=== PATIENT | male | born 1950 | race Caucasian/White ===

== ENCOUNTER 2018-03-03 15:57 | Inpatient (IN) | payer MEDICARE, MEDICAID ==
[2018-03-03 16:44] LABS: % BASOPHILS 0.6 % (0.0-2.0); % EOSINOPHILS 3.2 % (0.0-5.0); % LYMPHOCYTES 32.6 % (20.0-50.0); % MONOCYTES 8.1 % (2.0-10.0); % NEUTROPHILS 55.5 % (40.0-80.0); EOSINOPHILE ABSOLUTE 0.2 Th/cmm (0.1-0.4); HEMATOCRIT 43.8 % (41.0-60); HEMOGLOBIN 14.2 gm/dL (12-16); LYMPHOCYTE ABSOLUTE 2.1 Th/cmm (1.5-3.0); MEAN CELL VOLUME 97.6 fl (80-99); MEAN CORPUSCULAR HEMOGLOBIN 31.7 pg (27.0-31.0); MEAN CORPUSCULAR HGB CONC 32.4 pg (28.0-36.0); MEAN PLATELET VOLUME 8.6 fl; MONOCYTE ABSOLUTE 0.5 Th/cmm (0.3-1.0); NEUTROPHILE ABSOLUTE 3.5 Th/cmm (1.8-8.0); PLATELET COUNT 117 Th/cmm (150-400); RED BLOOD COUNT 4.48 Mil/cmm (3.80-5.80); RED CELL DISTRIBUTION WIDTH 13.2 % (11.5-20.0); WHITE BLOOD COUNT 6.3 Th/cmm (4.8-10.8)
[2018-03-03 17:13] LABS: ALBUMIN 3.2 gm/dL (4.2-5.5); ALKALINE PHOSPHATASE 99 U/L (34-104); ANION GAP 18.3 (7.0-16.0); BILIRUBIN,TOTAL 0.9 mg/dL (0.3-1.0); BUN - UREA NITROGEN 25 mg/dL (7-25); CALCIUM SERUM 8.5 mg/dL (8.6-10.3); CHLORIDE 110 mEq/L (98-107); CREATININE - SERUM 0.7 mg/dL (0.7-1.3); GFR AFRICAN-AMERICAN > 60.0 ml/min (>90); GFR NON AFRICAN-AMERICAN > 60.0 ml/min; GLUCOSE 102 mg/dL (70-105); POTASSIUM SERUM 4.5 mEq/L (3.5-5.1); SGOT 16 U/L (13-39); SGPT/ALT 14 U/L (7-52); SODIUM SERUM 140 mEq/L (136-145)
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
[2018-03-03 17:28] LABS: CARBON DIOXIDE 16.2 mEq/L (21.0-31.0)
[2018-03-03 17:35] LABS: URINE MICROSCOPIC INDICATED? YES; URINE SOURCE RANDOM
[2018-03-03 17:38] LABS: URINE BILIRUBIN NEGATIVE (NEGATIVE); URINE BLOOD MODERATE (NEGATIVE); URINE GLUCOSE (UA) NEGATIVE (NEGATIVE); URINE KETONE NEGATIVE (NEGATIVE); URINE LEUKOCYTE ESTERASE LARGE (NEGATIVE); URINE NITRATE POSITIVE (NEGATIVE); URINE PH 6.5 (4.6 - 8.0); URINE PROTEIN 100 mg/dL (NEGATIVE); URINE UROBILINOGEN 0.2 E.U./dL (0.2 - 1.0)
[2018-03-03 17:45] LABS: URINE CLARITY CLOUDY (CLEAR); URINE COLOR YELLOW
[2018-03-03 17:47] LABS: URINE WBC >100 /hpf (0-5)
[2018-03-03 17:48] LABS: URINE BACTERIA MANY /hpf (NONE SEEN); URINE EPITHELIAL CELLS RARE /lpf (FEW); URINE RBC 25-50 /hpf (0-5)
[2018-03-03] MEDS ORDERED: Sulfamethoxazole/TMP 800/160mg Tab PO ONE (17:53)
[2018-03-03] MEDS ORDERED: Sulfamethoxazole/TMP 800/160mg Tab ONE (17:57)
[2018-03-03 18:43] VITALS: BP 117/47
[2018-03-03] MEDS: Multivitamin w/ Minerals Tab PO SCH (21:00)
[2018-03-04] MEDS: Levothyroxine 0.075 Mg Tab PO SCH (06:39)
--- NOTE | 2018-03-04 09:57 | Diagnostic Imaging Report ---
Portable chest x-ray Time: 1700 hours History: Aortic calcification Allowing for portable technique the heart size is normal. No focal pulmonary parenchymal processes. No hilar or mediastinal abnormalities. Aortic arch calcified. Mild pleural thickening left base appreciated Impression: No acute abnormalities. Left base pleural thickening. Atherosclerotic calcification of aortic arch
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
[2018-03-04] MEDS: Multivitamin w/ Minerals Tab PO SCH (20:48)
--- NOTE | 2018-03-04 23:08 | History & Physical ---
ADMIT DATE: 03/04/2018 REASON FOR ADMISSION: Psychiatric disorder. HISTORY OF PRESENT ILLNESS: A 67-year-old male with underlying history of hypertension, hyperlipidemia, Alzheimer dementia, seizure disorder, hypothyroidism, who was admitted to [facility] for underlying psychiatric illness by Dr. Aviles. Dr. Aviles requested medical H and P on this patient. The patient said he is doing fine. Denies any chest pain, shortness of breath, dizziness, palpitations or other complaints. PAST MEDICAL HISTORY: As per HPI. PAST SURGICAL HISTORY: The patient denies. FAMILY HISTORY: Noncontributory. SOCIAL HISTORY: No reported alcohol, tobacco or street drug use. CURRENT MEDICATIONS: On Vimpat, Keppra, Synthroid, Ativan, Lopressor, Risperdal, Zocor, Ambien, ciprofloxacin, amlodipine, amantadine. REVIEW OF SYSTEMS: No reported fever, no chills, no nausea, no vomiting, no abdominal pain, no headache, no trouble vision, no trouble speech, no diarrhea, no vomiting or other complaints. PHYSICAL EXAMINATION: VITAL SIGNS: Temperature 98.7, pulse 68, respirations 18, blood pressure 126/80 97% on room air. HEART: S1, S2 normal. LUNGS: Clear to auscultation bilaterally. ABDOMEN: Soft, nontender. EXTREMITIES: No edema. AVAILABLE LABORATORY DATA: Has been reviewed. ASSESSMENT: 1. UTI. 2. Hypertension. 3. Seizure disorder. 4. Hyperlipidemia. 5. Metabolic acidosis. 6. Mental disorder. PLAN: The patient admitted [facility]. Psych management per psychiatrist. The patient was started on ciprofloxacin. Follow urine cultures. Continue the patient's seizure medication. Monitor blood pressure and other vitals. Continue with current psychotropic medications per Psychiatrist. Plan of care discussed with the nursing staff. JOB# [id number] DIANA
[2018-03-05] MEDS: Levothyroxine 0.075 Mg Tab PO SCH (06:33)
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
[2018-03-05] MEDS: Multivitamin w/ Minerals Tab PO SCH (20:42)
[2018-03-06] MEDS: Levothyroxine 0.075 Mg Tab PO SCH (06:36)
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
== END 2018-03-06 19:15 | DRG 885 ==
LOC: ER 15:57 → GERO 18:03
PROVIDERS: ADMIT Psychiatry & Neurology Psychiatry; ATTEND Psychiatry & Neurology Psychiatry
DX: F29 Unspecified psychosis not due to a substance or known physiological condition (principal); F02.81 Dementia in other diseases classified elsewhere, unspecified severity, with behavioral disturbance; Z93.0 Tracheostomy status; N39.0 Urinary tract infection, site not specified; E87.2 Acidosis; E78.5 Hyperlipidemia, unspecified; F17.210 Nicotine dependence, cigarettes, uncomplicated; G30.9 Alzheimer's disease, unspecified; E03.9 Hypothyroidism, unspecified; I10 Essential (primary) hypertension; G40.909 Epilepsy, unspecified, not intractable, without status epilepticus; Q54.9 Hypospadias, unspecified; Z90.49 Acquired absence of other specified parts of digestive tract
CPT/HCPCS: 36415-UA; 71045-TC; 80053-TC; 81001-TC; 85025-TC; 87086-90; Z7610

== ENCOUNTER 2018-03-06 19:16 | Inpatient (IN) | payer MEDICARE, MEDICAID ==
[2018-03-06 21:40] VITALS: BP 124/67
[2018-03-06 22:08] LABS: % BASOPHILS 0.3 % (0.0-2.0); % EOSINOPHILS 3.1 % (0.0-5.0); % LYMPHOCYTES 27.8 % (20.0-50.0); % NEUTROPHILS 60.8 % (40.0-80.0); EOSINOPHILE ABSOLUTE 0.2 Th/cmm (0.1-0.4); HEMATOCRIT 40.3 % (41.0-60); HEMOGLOBIN 13.3 gm/dL (12-16); LYMPHOCYTE ABSOLUTE 1.8 Th/cmm (1.5-3.0); MEAN CELL VOLUME 98.5 fl (80-99); MEAN CORPUSCULAR HEMOGLOBIN 32.5 pg (27.0-31.0); MEAN CORPUSCULAR HGB CONC 32.9 pg (28.0-36.0); MEAN PLATELET VOLUME 8.3 fl; MONOCYTE ABSOLUTE 0.5 Th/cmm (0.3-1.0); PLATELET COUNT 185 Th/cmm (150-400); RED BLOOD COUNT 4.09 Mil/cmm (3.80-5.80); RED CELL DISTRIBUTION WIDTH 13.2 % (11.5-20.0); WHITE BLOOD COUNT 6.5 Th/cmm (4.8-10.8)
[2018-03-06 22:25] LABS: ALB/GLOB RATIO 1.1 (1.0-1.8); ALKALINE PHOSPHATASE 119 U/L (34-104); BILIRUBIN,TOTAL 0.7 mg/dL (0.3-1.0); BUN - UREA NITROGEN 23 mg/dL (7-25); CALCIUM SERUM 9.4 mg/dL (8.6-10.3); CARBON DIOXIDE 29.3 mEq/L (21.0-31.0); CHLORIDE 101 mEq/L (98-107); CREATININE - SERUM 0.8 mg/dL (0.7-1.3); GFR AFRICAN-AMERICAN > 60.0 ml/min (>90); GFR NON AFRICAN-AMERICAN > 60.0 ml/min; GLUCOSE 125 mg/dL (70-105); POTASSIUM SERUM 4.3 mEq/L (3.5-5.1); SGOT 14 U/L (13-39); SGPT/ALT 19 U/L (7-52); SODIUM SERUM 136 mEq/L (136-145); TOTAL PROTEIN,SERUM 7.6 gm/dL (6.0-8.3)
[2018-03-07] MEDS: Meropenem 500 MG in Sodium Chloride 0.9% 100 ML IV SCH ×2 (02:00→09:45)
[2018-03-07] MEDS: Levothyroxine 0.075 Mg Tab PO SCH (06:39)
[2018-03-07 10:57] LABS: URINE MICROSCOPIC INDICATED? YES; URINE SOURCE CLEAN C
[2018-03-07 11:02] LABS: URINE BILIRUBIN NEGATIVE (NEGATIVE); URINE BLOOD TRACE (NEGATIVE); URINE CLARITY CLEAR (CLEAR); URINE COLOR YELLOW; URINE GLUCOSE (UA) NEGATIVE (NEGATIVE); URINE KETONE NEGATIVE (NEGATIVE); URINE LEUKOCYTE ESTERASE MODERATE (NEGATIVE); URINE NITRATE NEGATIVE (NEGATIVE); URINE PROTEIN NEGATIVE (NEGATIVE); URINE UROBILINOGEN 0.2 E.U./dL (0.2 - 1.0)
[2018-03-07 11:05] LABS: URINE BACTERIA OCCASIONAL /hpf (NONE SEEN); URINE EPITHELIAL CELLS FEW /lpf (FEW)
--- NOTE | 2018-03-07 11:38 | Consultation ---
Consult Note - Consult Note Service Date: 03/07/18 Referring Physician: Zen Fox Consult Note: PHYSICIAN Consultation Note: Date of Admission: 03/06/18 Purpose of Consultation: Chief Complaint: Patient ELFEGO MONTENEGRO was admitted to location Medical/Surgical Unit I with UTI. History of Present Illness: Patient is a 67 year male with a past medical history of hypertension, hyperlipidemia, dementia, seizure disorder, hypothyroidism admitted to geropsychiatric unit for psych issues. However, urinalysis showed pyuria and bacteriuria. Urine culture grew Proteus mirabilis. Initially, Levaquin was started. As Proteus mirabilis was resistant to any oral antibiotic. He required IV antibiotics patient was transferred to acute care unit. ID consult was called for an department management. The patient was started on Zosyn. Past Medical History: hypertension, hyperlipidemia, dementia, seizure disorder, hypothyroidism Allergies Allergy/AdvReac Type Severity Reaction Status Date / Time No Known Allergies Allergy Verified 03/03/18 16:18 Vital Signs Temp 98.3 F 03/07/18 11:32 Pulse 62 03/07/18 11:32 Resp 18 03/07/18 11:32 BP 109/53 03/07/18 11:32 Pulse Ox 94 03/07/18 11:32 Intake & Output 03/06/18 03/07/18 03/07/18 18:59 06:59 18:59 Intake Total 440 Output Total 0 Balance 440 Weight (lbs) 85.457 kg Intake: Intake, IV Amount 100 Meropenem 500 mg In 100 Sodium Chloride 0.9% 100 ml @ 100 mls/hr IV Q8H [facility] Rx#:[id number] Oral 300 Other 40 Output: Stool 0 Other: # Voids 3 # Bowel Movements 0 Weight Source [facility] Laboratory Results - last 24 hr 03/06/18 03/06/18 03/07/18 22:00 22:00 10:00 WBC 6.5 RBC 4.09 Hgb 13.3 Hct 40.3 L MCV 98.5 MCH 32.5 H MCHC Differential 32.9 RDW 13.2 Plt Count 185 MPV 8.3 Neutrophils % 60.8 Lymphocytes % 27.8 Monocytes % 8.0 Eosinophils % 3.1 Basophils % 0.3 Sodium 136 Potassium 4.3 Chloride 101 Carbon Dioxide 29.3 Anion Gap 10.0 BUN 23 Creatinine 0.8 Est GFR ( Amer) > 60.0 Est GFR (Non-Af Amer) > 60.0 BUN/Creatinine Ratio 28.8 Glucose 125 H Calcium 9.4 Total Bilirubin 0.7 AST 14 ALT 19 Alkaline Phosphatase 119 H Total Protein 7.6 Albumin 4.0 L Globulin 3.6 Albumin/Globulin Ratio 1.1 Urine Source CLEAN C Urine Color YELLOW Urine Clarity CLEAR Urine pH 6.0 Ur Specific [place] 1.015 Urine Protein NEGATIVE Urine Glucose (UA) NEGATIVE Urine Ketones NEGATIVE Urine Blood TRACE Urine Nitrate NEGATIVE Urine Bilirubin NEGATIVE Urine Urobilinogen 0.2 Ur Leukocyte Esterase MODERATE H Urine RBC 2-5 H Urine WBC 6-10 Ur Epithelial Cells FEW Urine Bacteria OCCASIONAL Home Medication Medication Instructions Recorded Type Amantadine [Symmetrel] 100 mg PO DAILY sgl 03/06/18 Rx Benazepril [Lotensin] 20 mg PO DAILY tab 03/06/18 Rx Ciprofloxacin [Cipro] 500 mg PO BID tab 03/06/18 Rx Docusate Sodium [Colace] 100 mg PO DAILY cap 03/06/18 Rx Donepezil Hcl [Aricept] 10 mg PO DAILY tab 03/06/18 Rx Doxazosin [Cardura*] 4 mg PO DAILY tab 03/06/18 Rx Folic Acid [Folate*] 1 mg PO HS tab 03/06/18 Rx Lacosamide [Vimpat] 200 mg PO HS tab 03/06/18 Rx Levetiracetam [Keppra] 1,500 mg PO Q12HR tab 03/06/18 Rx Levothyroxine [Synthroid] 0.075 mg PO QDAC tab 03/06/18 Rx Lorazepam [Ativan] 0.5 mg PO Q6HR PRN tab 03/06/18 Rx Metoprolol Tartrate [Lopressor] 12.5 mg PO HS tab 03/06/18 Rx Multivitamin w/ Minerals 1 tab PO HS tab 03/06/18 Rx [Theragran M] Simvastatin [Zocor] 10 mg PO HS tab 03/06/18 Rx Zolpidem Tartrate [Ambien] 5 mg PO HS PRN tab 03/06/18 Rx amLODIPine Besylate [Norvasc*] 10 mg PO DAILY tab 03/06/18 Rx risperiDONE [RisperDAL] 0.25 mg PO BID tab 03/06/18 Rx Current Medications Generic Name Dose Route Start Last Admin Trade Name Freq PRN Reason Stop Dose Admin Amlodipine Besylate 10 mg 03/07/18 09:00 03/07/18 09:43 Norvasc PO 05/06/18 08:59 10 mg DAILY DUNCAN Administration Benazepril HCl 20 mg 03/07/18 09:00 03/07/18 09:44 Lotensin PO 05/06/18 08:59 20 mg DAILY DUNCAN Administration Donepezil HCl 10 mg 03/07/18 09:00 03/07/18 09:44 Aricept PO 05/06/18 08:59 10 mg DAILY DUNCAN Administration Meropenem 500 mg/ Sodium 100 mls @ 100 mls/hr 03/07/18 01:00 03/07/18 09:45 Chloride IV 05/06/18 00:59 100 mls/hr Q8H DUNCAN Administration Levetiracetam 1,500 mg 03/07/18 00:30 03/07/18 09:44 Keppra PO 05/06/18 00:29 1,500 mg Q12HR DUNCAN Administration Levothyroxine Sodium 0.075 mg 03/07/18 07:30 03/07/18 06:39 Synthroid PO 05/06/18 07:29 0.075 mg QDAC DUNCAN Administration Lorazepam 0.5 mg 03/07/18 00:24 Ativan PO 05/06/18 00:23 Q6HR PRN Agitation Protocol Metoprolol Tartrate 12.5 mg 03/07/18 00:45 03/07/18 09:44 Lopressor PO 05/06/18 00:44 12.5 mg BID DUNCAN Administration Risperidone 0.25 mg 03/07/18 00:45 Risperdal PO 05/06/18 00:44 BID DUNCAN Protocol Zolpidem Tartrate 5 mg 03/07/18 00:35 Ambien PO 05/06/18 00:34 HS PRN Insomnia Review of Systems: A 12 point ROS was reviewed with the pertinent positive and negatives noted in the HPI. Social History Smoking Status Current some day smoker Drug Use Yes: HEROIN MARIJUANA Family Medical History Family Medical History Start: 03/06/18 19: 47 Freq: ONCE Status: Active Document 03/06/18 22:04 KARRIE (Rec: 03/06/18 22:05 KARRIE THOMAS-MS4) Family Medical History Mother History Unknown Yes Physical Exam: General: Comfortable not in acute distress. HEENT: At: Normocytic, atraumatic. Oral cavity: Moist, pink tongue. Eyes: Pallor is present icterus. Neck: Supple, no Unique, no use of X his neck muscles. Cardio: S1 and S2 within normal limits regular rhythm. Respiratory: Vesicular breath sound. No crackles no wheezing Abdominal: Soft, nontender, nondistended bowel sounds present. Genital/Urinary: Deferred. Extremities: No cyanosis, no clubbing, no edema. Neurological: Alert, awake, oriented 3. Assessment: 1. UTI. 2. Psychosis. 3. Hypertension. 4. Hyperlipidemia. 5. Seizure disorder. Plan: Will change meropenem to Zosyn. We will give antibiotic to 5-7 days. Thank you, Dr. Fox for involving me in taking care of this patient Signed, Sagar Enciso M.D. [id number]
[2018-03-07] MEDS ORDERED: Probiotic Screen MC PRN (15:40)
--- NOTE | 2018-03-07 19:10 | History & Physical ---
ADMIT DATE: 03/06/2018 REASON FOR ADMISSION: UTI. HISTORY OF PRESENT ILLNESS: This is a 67-year-old male who was initially in the Geropsych Unit, was on oral antibiotic for UTI. Urine cultures came back which was sensitive to only IV antibiotics. So, the patient was transferred to Med/Surg unit for UTI treatment. The patient denies any fever, no chills, no nausea, no vomiting, no abdominal pain, other complaints. PAST MEDICAL HISTORY: Hypertension, seizure disorder, hypothyroidism and mental disorders. ALLERGIES: No drug allergies. SOCIAL HISTORY: Lives at home. No reported alcohol, tobacco or street drug use. CURRENT MEDICATIONS: Amlodipine, Lotensin, Aricept, Keppra, Synthroid, Ativan, Lopressor, Zosyn, probiotic, Ambien, and Risperdal. REVIEW OF SYSTEMS: As per HPI, 12-point system review is negative. PHYSICAL EXAMINATION: VITAL SIGNS: Temperature 98.3, pulse 62, respirations 18, blood pressure 109/53. Pain 0/10. GENERAL APPEARANCE: The patient was lying comfortably in the bed, no apparent distress. HEART: S1, S2 normal. LUNGS: Clear to auscultation. ABDOMEN: Soft, nontender. NEUROLOGIC: The patient is awake, but confused. Moves all extremities. Grossly nonfocal. EXTREMITIES: No edema. LABORATORY DATA: Available WBC 6.5, hemoglobin 13.3, hematocrit 40.3. Sodium 130, potassium 4.3, BUN 20, creatinine 0.8, AST , ALT 19. Urine leukocyte esterase moderate, WBCs 2-5, urine bacteria occasional. ASSESSMENT: 1. Urinary tract infection. 2. Hypertension. 3. Hypothyroidism. 4. Seizure disorder. 5. Mental disorder. PLAN: The patient will be continued on IV Zosyn. ID is on board. Continue current blood pressure medication, monitor blood pressures. Psych also consult, psychotropic drug management per psychiatrist. JOB# [id number]
[2018-03-08] MEDS: Levothyroxine 0.075 Mg Tab PO SCH (06:49)
[2018-03-08] MEDS: Lactobacillus Rhamnosus GG 15 Billion CFU CAP.SPRINK PO SCH (08:56)
--- NOTE | 2018-03-08 13:29 | Consultation ---
DATE OF CONSULTATION: 03/08/2018 PSYCHIATRIC CONSULT AGE: 67-year-old. SEX: Male. PHYSICIAN: Dr. Fox. REASON FOR THE CONSULT: Heavy drinking and depression. HISTORY OF PRESENT ILLNESS: The patient is a 67-year-old male [facility] The patient was admitted because of seizure disorder as well as urinary tract infection. The patient also has been depressed. Chart reviewed and tried to interview the patient, but the patient currently is sedated and he was not able to answer any of my questions coherently. The patient has been taking Risperdal and he also has been taking Ativan with no issues or side effects. PAST PSYCHIATRIC HISTORY: The patient has history of heavy drinking as well as history of what seems to be depression versus bipolar disorder. SOCIAL HISTORY: The patient drinks alcohol, but no known other drug use. MEDICAL ISSUES: The patient has seizure disorder. MENTAL STATUS EXAM: The patient appears slightly older than stated age. The patient is currently sedated and he was not able to answer any of my questions. ASSESSMENT: PRIMARY DIAGNOSIS: Depressive disorder, not otherwise specified. Rule out bipolar disorder. SECONDARY DIAGNOSIS: Alcohol use disorder. TREATMENT PLAN: Continue current medications, which is Risperdal and Ativan. We will reevaluate. Thanks to Dr. Fox and we will follow with you. [facility]# [id number]
--- NOTE | 2018-03-08 15:30 | General Progress Note ---
Subjective - Review of Systems Service Date: 03/08/18 Subjective: Patient seen and examined doing fine denied any complaints Objective - Results Result Diagrams: 03/06/18 22:00 03/06/18 22:00 Recent Labs: Laboratory Last Values WBC 6.5 Th/cmm (4.8-10.8) 03/06/18 22:00 RBC 4.09 Mil/cmm (3.80-5.80) 03/06/18 22:00 Hgb 13.3 gm/dL (12-16) 03/06/18 22:00 Hct 40.3 % (41.0-60) L 03/06/18 22:00 MCV 98.5 fl (80-99) 03/06/18 22:00 MCH 32.5 pg (27.0-31.0) H 03/06/18 22:00 MCHC Differential 32.9 pg (28.0-36.0) 03/06/18 22:00 RDW 13.2 % (11.5-20.0) 03/06/18 22:00 Plt Count 185 Th/cmm (150-400) 03/06/18 22:00 MPV 8.3 fl 03/06/18 22:00 Neutrophils % 60.8 % (40.0-80.0) 03/06/18 22:00 Lymphocytes % 27.8 % (20.0-50.0) 03/06/18 22:00 Monocytes % 8.0 % (2.0-10.0) 03/06/18 22:00 Eosinophils % 3.1 % (0.0-5.0) 03/06/18 22:00 Basophils % 0.3 % (0.0-2.0) 03/06/18 22:00 Sodium 136 mEq/L (136-145) 03/06/18 22:00 Potassium 4.3 mEq/L (3.5-5.1) 03/06/18 22:00 Chloride 101 mEq/L (98-107) 03/06/18 22:00 Carbon Dioxide 29.3 mEq/L (21.0-31.0) 03/06/18 22:00 Anion Gap 10.0 (7.0-16.0) 03/06/18 22:00 BUN 23 mg/dL (7-25) 03/06/18 22:00 Creatinine 0.8 mg/dL (0.7-1.3) 03/06/18 22:00 Est GFR ( Amer) > 60.0 ml/min (>90) 03/06/18 22:00 Est GFR (Non-Af Amer) > 60.0 ml/min 03/06/18 22:00 BUN/Creatinine Ratio 28.8 03/06/18 22:00 Glucose 125 mg/dL (70-105) H 03/06/18 22:00 Calcium 9.4 mg/dL (8.6-10.3) 03/06/18 22:00 Total Bilirubin 0.7 mg/dL (0.3-1.0) 03/06/18 22:00 AST 14 U/L (13-39) 03/06/18 22:00 ALT 19 U/L (7-52) 03/06/18 22:00 Alkaline Phosphatase 119 U/L (34-104) H 03/06/18 22:00 Total Protein 7.6 gm/dL (6.0-8.3) 03/06/18 22:00 Albumin 4.0 gm/dL (4.2-5.5) L 03/06/18 22:00 Globulin 3.6 gm/dL 03/06/18 22:00 Albumin/Globulin Ratio 1.1 (1.0-1.8) 03/06/18 22:00 Urine Source CLEAN C 03/07/18 10:00 Urine Color YELLOW 03/07/18 10:00 Urine Clarity CLEAR (CLEAR) 03/07/18 10:00 Urine pH 6.0 (4.6 - 8.0) 03/07/18 10:00 Ur Specific [place] 1.015 (1.005-1.030) 03/07/18 10:00 Urine Protein NEGATIVE mg/dL (NEGATIVE) 03/07/18 10:00 Urine Glucose (UA) NEGATIVE mg/dL (NEGATIVE) 03/07/18 10:00 Urine Ketones NEGATIVE mg/dL (NEGATIVE) 03/07/18 10:00 Urine Blood TRACE (NEGATIVE) 03/07/18 10:00 Urine Nitrate NEGATIVE (NEGATIVE) 03/07/18 10:00 Urine Bilirubin NEGATIVE (NEGATIVE) 03/07/18 10:00 Urine Urobilinogen 0.2 E.U./dL (0.2 - 1.0) 03/07/18 10:00 Ur Leukocyte Esterase MODERATE (NEGATIVE) H 03/07/18 10:00 Urine RBC 2-5 /hpf (0-5) H 03/07/18 10:00 Urine WBC 6-10 /hpf (0-5) 03/07/18 10:00 Ur Epithelial Cells FEW /lpf (FEW) 03/07/18 10:00 Urine Bacteria OCCASIONAL /hpf (NONE SEEN) 03/07/18 10:00 - Physical Exam Vitals and I&O: Vital Signs Temp 97.3 F 03/08/18 11:59 Pulse 71 03/08/18 11:59 Resp 18 03/08/18 11:59 BP 113/49 03/08/18 11:59 Pulse Ox 97 03/08/18 11:59 Intake & Output 03/07/18 03/08/18 03/08/18 18:59 06:59 18:59 Intake Total 850 100 Balance 850 100 Weight (lbs) 85.457 kg Intake: Intake, IV Amount 50 100 Piperacillin Sodium/ 50 100 Tazobact 3.375 gm In Sodium Chloride 0.9% 50 ml @ 100 mls/hr IV Q8HR [facility] Rx#:[id number] Oral 800 Other: # Voids 3 # Bowel Movements 0 Weight Source Bedscale Active Medications: Current Medications Amlodipine Besylate (Norvasc) 10 mg PO DAILY [facility] Stop: 05/06/18 08:59 Last Admin: 03/08/18 08:53 Dose: Not Given Benazepril HCl (Lotensin) 20 mg PO DAILY [facility] Stop: 05/06/18 08:59 Last Admin: 03/08/18 08:56 Dose: Not Given Donepezil HCl (Aricept) 10 mg PO DAILY [facility] Stop: 05/06/18 08:59 Last Admin: 03/08/18 08:56 Dose: 10 mg Piperacillin Sod/Tazobactam (Sod 3.375 gm/ Sodium Chloride) 50 mls @ 100 mls/ hr IV Q8HR [facility] Stop: 05/06/18 12:59 Last Admin: 03/08/18 14:08 Dose: 100 mls/hr Lactobacillus Rhamnosus (Culturelle 15b) 1 each PO DAILY [facility] Stop: 05/07/18 08:59 Last Admin: 03/08/18 08:56 Dose: 1 each Levetiracetam (Keppra) 1,500 mg PO Q12HR [facility] Stop: 05/06/18 00:29 Last Admin: 03/08/18 08:56 Dose: 1,500 mg Levothyroxine Sodium (Synthroid) 0.075 mg PO QDAC [facility] Stop: 05/06/18 07:29 Last Admin: 03/08/18 06:49 Dose: 0.075 mg Lorazepam (Ativan) 0.5 mg PO Q6HR PRN; Protocol PRN Reason: Agitation Stop: 05/06/18 00:23 Metoprolol Tartrate (Lopressor) 12.5 mg PO BID [facility] Stop: 05/06/18 00:44 Last Admin: 03/08/18 08:56 Dose: Not Given Miscellaneous (Probiotic Screen) 1 ea [facility] PRN PRN PRN Reason: PROTOCOL Stop: 05/06/18 15:39 Risperidone (Risperdal) 0.25 mg PO BID [facility] PRN Reason: Protocol Stop: 05/06/18 00:44 Last Admin: 03/08/18 08:55 Dose: 0.25 mg Zolpidem Tartrate (Ambien) 5 mg PO HS PRN PRN Reason: Insomnia Stop: 05/06/18 00:34 Last Admin: 03/07/18 20:30 Dose: 5 mg Cardiovascular: Regular rate Lungs: Clear to auscultation Abdomen: Soft, no Tender Assessment/Plan - Assessment Assessment: UTI HTN SEIZURE DISORDER HYPERLIPIDEMIA - Plan Plan: Continue current treatment plan Follow ID recomendations Psych follow up MAR and LAB reviewed
[2018-03-09] MEDS: Levothyroxine 0.075 Mg Tab PO SCH (06:42)
[2018-03-09] MEDS: Lactobacillus Rhamnosus GG 15 Billion CFU CAP.SPRINK PO SCH (08:39)
--- NOTE | 2018-03-09 15:35 | Progress Notes ---
DATE: 03/09/2018 PSYCHIATRIC PROGRESS NOTE Chart reviewed and the patient interviewed. Also discussed the patient's condition with the staff and reviewed records and labs. The patient is still withdrawn and depressed. Also, hardly answer any questions. The patient also is interacting minimally with others. He also is guarded and seems to be slightly confused. Otherwise, no major behavior problems. ASSESSMENT: The patient is still depressed. TREATMENT PLAN: Continue monitoring his behavior closely. Also, continue to work on his drinking when more cooperative and more alert and will continue to follow up. JOB# [id number]
--- NOTE | 2018-03-09 16:34 | General Progress Note ---
Subjective - Review of Systems Service Date: 03/09/18 Subjective: Patient seen and examined doing fine denied any complaints Objective - Results Result Diagrams: 03/06/18 22:00 03/06/18 22:00 Recent Labs: Laboratory Last Values WBC 6.5 Th/cmm (4.8-10.8) 03/06/18 22:00 RBC 4.09 Mil/cmm (3.80-5.80) 03/06/18 22:00 Hgb 13.3 gm/dL (12-16) 03/06/18 22:00 Hct 40.3 % (41.0-60) L 03/06/18 22:00 MCV 98.5 fl (80-99) 03/06/18 22:00 MCH 32.5 pg (27.0-31.0) H 03/06/18 22:00 MCHC Differential 32.9 pg (28.0-36.0) 03/06/18 22:00 RDW 13.2 % (11.5-20.0) 03/06/18 22:00 Plt Count 185 Th/cmm (150-400) 03/06/18 22:00 MPV 8.3 fl 03/06/18 22:00 Neutrophils % 60.8 % (40.0-80.0) 03/06/18 22:00 Lymphocytes % 27.8 % (20.0-50.0) 03/06/18 22:00 Monocytes % 8.0 % (2.0-10.0) 03/06/18 22:00 Eosinophils % 3.1 % (0.0-5.0) 03/06/18 22:00 Basophils % 0.3 % (0.0-2.0) 03/06/18 22:00 Sodium 136 mEq/L (136-145) 03/06/18 22:00 Potassium 4.3 mEq/L (3.5-5.1) 03/06/18 22:00 Chloride 101 mEq/L (98-107) 03/06/18 22:00 Carbon Dioxide 29.3 mEq/L (21.0-31.0) 03/06/18 22:00 Anion Gap 10.0 (7.0-16.0) 03/06/18 22:00 BUN 23 mg/dL (7-25) 03/06/18 22:00 Creatinine 0.8 mg/dL (0.7-1.3) 03/06/18 22:00 Est GFR ( Amer) > 60.0 ml/min (>90) 03/06/18 22:00 Est GFR (Non-Af Amer) > 60.0 ml/min 03/06/18 22:00 BUN/Creatinine Ratio 28.8 03/06/18 22:00 Glucose 125 mg/dL (70-105) H 03/06/18 22:00 Calcium 9.4 mg/dL (8.6-10.3) 03/06/18 22:00 Total Bilirubin 0.7 mg/dL (0.3-1.0) 03/06/18 22:00 AST 14 U/L (13-39) 03/06/18 22:00 ALT 19 U/L (7-52) 03/06/18 22:00 Alkaline Phosphatase 119 U/L (34-104) H 03/06/18 22:00 Total Protein 7.6 gm/dL (6.0-8.3) 03/06/18 22:00 Albumin 4.0 gm/dL (4.2-5.5) L 03/06/18 22:00 Globulin 3.6 gm/dL 03/06/18 22:00 Albumin/Globulin Ratio 1.1 (1.0-1.8) 03/06/18 22:00 Urine Source CLEAN C 03/07/18 10:00 Urine Color YELLOW 03/07/18 10:00 Urine Clarity CLEAR (CLEAR) 03/07/18 10:00 Urine pH 6.0 (4.6 - 8.0) 03/07/18 10:00 Ur Specific [place] 1.015 (1.005-1.030) 03/07/18 10:00 Urine Protein NEGATIVE mg/dL (NEGATIVE) 03/07/18 10:00 Urine Glucose (UA) NEGATIVE mg/dL (NEGATIVE) 03/07/18 10:00 Urine Ketones NEGATIVE mg/dL (NEGATIVE) 03/07/18 10:00 Urine Blood TRACE (NEGATIVE) 03/07/18 10:00 Urine Nitrate NEGATIVE (NEGATIVE) 03/07/18 10:00 Urine Bilirubin NEGATIVE (NEGATIVE) 03/07/18 10:00 Urine Urobilinogen 0.2 E.U./dL (0.2 - 1.0) 03/07/18 10:00 Ur Leukocyte Esterase MODERATE (NEGATIVE) H 03/07/18 10:00 Urine RBC 2-5 /hpf (0-5) H 03/07/18 10:00 Urine WBC 6-10 /hpf (0-5) 03/07/18 10:00 Ur Epithelial Cells FEW /lpf (FEW) 03/07/18 10:00 Urine Bacteria OCCASIONAL /hpf (NONE SEEN) 03/07/18 10:00 - Physical Exam Vitals and I&O: Vital Signs Temp 98.1 F 03/09/18 12:00 Pulse 64 03/09/18 12:00 Resp 18 03/09/18 12:00 BP 110/66 03/09/18 12:00 Pulse Ox 93 03/09/18 12:00 Intake & Output 03/08/18 03/09/18 03/09/18 18:59 06:59 18:59 Intake Total 550 100 Balance 550 100 Weight (lbs) 85.275 kg 89.675 kg Intake: Intake, IV Amount 50 100 Piperacillin Sodium/ 50 100 Tazobact 3.375 gm In Sodium Chloride 0.9% 50 ml @ 100 mls/hr IV Q8HR [facility] Rx#:[id number] Oral 500 Other: # Voids 3 2 # Bowel Movements 1 1 Weight Source Bedscale Bedscale Active Medications: Current Medications Amlodipine Besylate (Norvasc) 10 mg PO DAILY [facility] Stop: 05/06/18 08:59 Last Admin: 03/09/18 08:38 Dose: 10 mg Benazepril HCl (Lotensin) 20 mg PO DAILY [facility] Stop: 05/06/18 08:59 Last Admin: 03/09/18 08:39 Dose: 20 mg Donepezil HCl (Aricept) 10 mg PO DAILY [facility] Stop: 05/06/18 08:59 Last Admin: 03/09/18 08:39 Dose: 10 mg Piperacillin Sod/Tazobactam (Sod 3.375 gm/ Sodium Chloride) 50 mls @ 100 mls/ hr IV Q8HR [facility] Stop: 05/06/18 12:59 Last Admin: 03/09/18 12:07 Dose: 100 mls/hr Lactobacillus Rhamnosus (Culturelle 15b) 1 each PO DAILY [facility] Stop: 05/07/18 08:59 Last Admin: 03/09/18 08:39 Dose: 1 each Levetiracetam (Keppra) 1,500 mg PO Q12HR [facility] Stop: 05/06/18 00:29 Last Admin: 03/09/18 08:39 Dose: 1,500 mg Levothyroxine Sodium (Synthroid) 0.075 mg PO QDAC [facility] Stop: 05/06/18 07:29 Last Admin: 03/09/18 06:42 Dose: Not Given Lorazepam (Ativan) 0.5 mg PO Q6HR PRN; Protocol PRN Reason: Agitation Stop: 05/06/18 00:23 Metoprolol Tartrate (Lopressor) 12.5 mg PO BID [facility] Stop: 05/06/18 00:44 Last Admin: 03/09/18 08:40 Dose: 12.5 mg Miscellaneous (Probiotic Screen) 1 ea [facility] PRN PRN PRN Reason: PROTOCOL Stop: 05/06/18 15:39 Risperidone (Risperdal) 0.25 mg PO BID [facility] PRN Reason: Protocol Stop: 05/06/18 00:44 Last Admin: 03/09/18 08:37 Dose: 0.25 mg Zolpidem Tartrate (Ambien) 5 mg PO HS PRN PRN Reason: Insomnia Stop: 05/06/18 00:34 Last Admin: 03/07/18 20:30 Dose: 5 mg Cardiovascular: Regular rate Lungs: Clear to auscultation Abdomen: Soft, no Tender Assessment/Plan - Assessment Assessment: UTI HTN SEIZURE DISORDER HYPERLIPIDEMIA - Plan Plan: Patient better DC back to [facility] Case discussed with ID who cleared patient for DC with cipro for 5 days DC plan discussed with nursing staff
--- NOTE | 2018-03-09 16:38 | Infectious Disease Prog Note ---
Infectious Disease Subjective - Review of Systems Service Date: 03/09/18 Subjective: No new change, no fever. Infectious Disease Objective - Results Result Diagrams: 03/06/18 22:00 03/06/18 22:00 Recent Labs: Laboratory Last Values WBC 6.5 Th/cmm (4.8-10.8) 03/06/18 22:00 RBC 4.09 Mil/cmm (3.80-5.80) 03/06/18 22:00 Hgb 13.3 gm/dL (12-16) 03/06/18 22:00 Hct 40.3 % (41.0-60) L 03/06/18 22:00 MCV 98.5 fl (80-99) 03/06/18 22:00 MCH 32.5 pg (27.0-31.0) H 03/06/18 22:00 MCHC Differential 32.9 pg (28.0-36.0) 03/06/18 22:00 RDW 13.2 % (11.5-20.0) 03/06/18 22:00 Plt Count 185 Th/cmm (150-400) 03/06/18 22:00 MPV 8.3 fl 03/06/18 22:00 Neutrophils % 60.8 % (40.0-80.0) 03/06/18 22:00 Lymphocytes % 27.8 % (20.0-50.0) 03/06/18 22:00 Monocytes % 8.0 % (2.0-10.0) 03/06/18 22:00 Eosinophils % 3.1 % (0.0-5.0) 03/06/18 22:00 Basophils % 0.3 % (0.0-2.0) 03/06/18 22:00 Sodium 136 mEq/L (136-145) 03/06/18 22:00 Potassium 4.3 mEq/L (3.5-5.1) 03/06/18 22:00 Chloride 101 mEq/L (98-107) 03/06/18 22:00 Carbon Dioxide 29.3 mEq/L (21.0-31.0) 03/06/18 22:00 Anion Gap 10.0 (7.0-16.0) 03/06/18 22:00 BUN 23 mg/dL (7-25) 03/06/18 22:00 Creatinine 0.8 mg/dL (0.7-1.3) 03/06/18 22:00 Est GFR ( Amer) > 60.0 ml/min (>90) 03/06/18 22:00 Est GFR (Non-Af Amer) > 60.0 ml/min 03/06/18 22:00 BUN/Creatinine Ratio 28.8 03/06/18 22:00 Glucose 125 mg/dL (70-105) H 03/06/18 22:00 Calcium 9.4 mg/dL (8.6-10.3) 03/06/18 22:00 Total Bilirubin 0.7 mg/dL (0.3-1.0) 03/06/18 22:00 AST 14 U/L (13-39) 03/06/18 22:00 ALT 19 U/L (7-52) 03/06/18 22:00 Alkaline Phosphatase 119 U/L (34-104) H 03/06/18 22:00 Total Protein 7.6 gm/dL (6.0-8.3) 03/06/18 22:00 Albumin 4.0 gm/dL (4.2-5.5) L 03/06/18 22:00 Globulin 3.6 gm/dL 03/06/18 22:00 Albumin/Globulin Ratio 1.1 (1.0-1.8) 03/06/18 22:00 Urine Source CLEAN C 03/07/18 10:00 Urine Color YELLOW 03/07/18 10:00 Urine Clarity CLEAR (CLEAR) 03/07/18 10:00 Urine pH 6.0 (4.6 - 8.0) 03/07/18 10:00 Ur Specific [place] 1.015 (1.005-1.030) 03/07/18 10:00 Urine Protein NEGATIVE mg/dL (NEGATIVE) 03/07/18 10:00 Urine Glucose (UA) NEGATIVE mg/dL (NEGATIVE) 03/07/18 10:00 Urine Ketones NEGATIVE mg/dL (NEGATIVE) 03/07/18 10:00 Urine Blood TRACE (NEGATIVE) 03/07/18 10:00 Urine Nitrate NEGATIVE (NEGATIVE) 03/07/18 10:00 Urine Bilirubin NEGATIVE (NEGATIVE) 03/07/18 10:00 Urine Urobilinogen 0.2 E.U./dL (0.2 - 1.0) 03/07/18 10:00 Ur Leukocyte Esterase MODERATE (NEGATIVE) H 03/07/18 10:00 Urine RBC 2-5 /hpf (0-5) H 03/07/18 10:00 Urine WBC 6-10 /hpf (0-5) 03/07/18 10:00 Ur Epithelial Cells FEW /lpf (FEW) 03/07/18 10:00 Urine Bacteria OCCASIONAL /hpf (NONE SEEN) 03/07/18 10:00 - Physical Exam Vitals and I&O: Vital Signs Temp 98.1 F 03/09/18 12:00 Pulse 64 03/09/18 12:00 Resp 18 03/09/18 12:00 BP 110/66 03/09/18 12:00 Pulse Ox 93 03/09/18 12:00 Intake & Output 03/08/18 03/09/18 03/09/18 18:59 06:59 18:59 Intake Total 550 100 Balance 550 100 Weight (lbs) 85.275 kg 89.675 kg Intake: Intake, IV Amount 50 100 Piperacillin Sodium/ 50 100 Tazobact 3.375 gm In Sodium Chloride 0.9% 50 ml @ 100 mls/hr IV Q8HR [facility] Rx#:[id number] Oral 500 Other: # Voids 3 2 # Bowel Movements 1 1 Weight Source Bedscale Bedscale Active Medications: Current Medications Amlodipine Besylate (Norvasc) 10 mg PO DAILY [facility] Stop: 05/06/18 08:59 Last Admin: 03/09/18 08:38 Dose: 10 mg Benazepril HCl (Lotensin) 20 mg PO DAILY [facility] Stop: 05/06/18 08:59 Last Admin: 03/09/18 08:39 Dose: 20 mg Donepezil HCl (Aricept) 10 mg PO DAILY [facility] Stop: 05/06/18 08:59 Last Admin: 03/09/18 08:39 Dose: 10 mg Piperacillin Sod/Tazobactam (Sod 3.375 gm/ Sodium Chloride) 50 mls @ 100 mls/ hr IV Q8HR [facility] Stop: 05/06/18 12:59 Last Admin: 03/09/18 12:07 Dose: 100 mls/hr Lactobacillus Rhamnosus (Culturelle 15b) 1 each PO DAILY [facility] Stop: 05/07/18 08:59 Last Admin: 03/09/18 08:39 Dose: 1 each Levetiracetam (Keppra) 1,500 mg PO Q12HR [facility] Stop: 05/06/18 00:29 Last Admin: 03/09/18 08:39 Dose: 1,500 mg Levothyroxine Sodium (Synthroid) 0.075 mg PO QDAC [facility] Stop: 05/06/18 07:29 Last Admin: 03/09/18 06:42 Dose: Not Given Lorazepam (Ativan) 0.5 mg PO Q6HR PRN; Protocol PRN Reason: Agitation Stop: 05/06/18 00:23 Metoprolol Tartrate (Lopressor) 12.5 mg PO BID [facility] Stop: 05/06/18 00:44 Last Admin: 03/09/18 08:40 Dose: 12.5 mg Miscellaneous (Probiotic Screen) 1 ea [facility] PRN PRN PRN Reason: PROTOCOL Stop: 05/06/18 15:39 Risperidone (Risperdal) 0.25 mg PO BID [facility] PRN Reason: Protocol Stop: 05/06/18 00:44 Last Admin: 03/09/18 08:37 Dose: 0.25 mg Zolpidem Tartrate (Ambien) 5 mg PO HS PRN PRN Reason: Insomnia Stop: 05/06/18 00:34 Last Admin: 03/07/18 20:30 Dose: 5 mg General: no acute distress, well developed, well nourished HEENT: atraumatic, normocephalic, PERRLA, EOMI Neck: supple, no thyromegaly Cardiovascular: S1S2, regular Lungs: clear to auscultation bilaterally, clear to percussion Abdomen: soft, no tender, no distended Extremities: no cyanosis, no clubbing, no edema Neurological: awake, alert, oriented Skin: intact, no rash, no subcutaneous nodules Infectious Disease Assmt/Plan - Assessment Assessment: 1. UTI. 2. Psychosis. 3. Hypertension. 4. Hyperlipidemia. 5. Seizure disorder. - Plan Plan: may dc patient home on cipro po bid for 5 more days.
== END 2018-03-09 20:15 | DRG 690 ==
LOC: MSI 19:16
PROVIDERS: ADMIT Family Medicine; ATTEND Family Medicine
DX: N39.0 Urinary tract infection, site not specified (principal); I10 Essential (primary) hypertension; G40.909 Epilepsy, unspecified, not intractable, without status epilepticus; E03.9 Hypothyroidism, unspecified; F29 Unspecified psychosis not due to a substance or known physiological condition; E78.5 Hyperlipidemia, unspecified; F03.90 Unspecified dementia, unspecified severity, without behavioral disturbance, psychotic disturbance, mood disturbance, and anxiety; F32.9 Major depressive disorder, single episode, unspecified; Z72.89 Other problems related to lifestyle
CPT/HCPCS: 36415-UA; 80053-TC; 81001-TC; 85025-TC; J2185; J2543; Z7610